=== PATIENT | female | born 1945 | race Caucasian/White ===

== ENCOUNTER 2019-01-26 08:53 | Emergency (ER) | payer MEDICARE, BC ==
[~2019-01-26] VITALS: Ht 157.5 cm; Wt 51.3 kg
[~2019-01-26 08:53] MED LIST: CIME400 PO; PRED20 PO
[2019-01-26] MEDS ORDERED: Pravachol20 MG PO (09:41)
[2019-01-26] MEDS ORDERED: OXYC5 PO (09:42)
[2019-01-26] MEDS ORDERED: HYDMOR2 (09:43)
== END 2019-01-26 10:33 | disposition home or self-care (01) ==
LOC: ER 08:53
DX: L76.32 Postprocedural hematoma of skin and subcutaneous tissue following other procedure (principal); Z98.1 Arthrodesis status; Z88.8 Allergy status to other drugs, medicaments and biological substances; Z79.899 Other long term (current) drug therapy; Z79.891 Long term (current) use of opiate analgesic; E78.5 Hyperlipidemia, unspecified; Z87.891 Personal history of nicotine dependence

== ENCOUNTER → 2021-01-08 | Outpatient (CLI) | payer MEDICARE, BC ==
[~2021-01-08] MED LIST changes: +HYDMOR2; +OXYC5 PO; +Pravachol20 MG PO
[2021-01-08 16:05] LABS: BASOPHILS ABSOLUTE AUTO 0.11 K/mm3 (0.00-0.23); BASOPHILS PERCENT AUTO 1 % (0-2); EOSINOPHILS ABSOLUTE AUTO 0.73 K/mm3 (0.00-0.68); EOSINOPHILS PERCENT AUTO 7 % (0-6); Hematocrit 40.7 % (33.0-51.0); IMMATURE GRAN ABSOLUTE AUTO 0.03 K/mm3 (0.00-0.10); IMMATURE GRAN PERCENT AUTO 0 % (0-1); LYMPHOCYTES PERCENT AUTO 21 % (21-46); MONOCYTES ABSOLUTE AUTO 0.88 K/mm3 (0.16-1.47); MONOCYTES PERCENT AUTO 9 % (4-13); Mean Corpuscular HGB 28.8 pg (26.0-34.0); Mean Corpuscular HGB Conc 34.4 g/dL (31.5-36.5); Mean Corpuscular Volume 84 fL (80-100); Mean Platelet Volume 8.7 fL (9.1-12.4); NEUTROPHILS PERCENT AUTO 62 % (41-73); Platelet Count 301 K/mm3 (150-400); RDW Coefficient Variation 12.8 % (11.7-14.2); RDW Standard Deviation 38.5 fL (35.1-46.3); Red Blood Cell Count 4.86 M/mm3 (3.80-5.20); White Blood Cell Count 10.05 K/mm3 (4.00-11.30)
[2021-01-08 16:14] LABS: Albumin, Blood 3.9 g/dL (3.4-5.0); Bilirubin, Total 0.2 mg/dL (0.1-1.0); Bun/Creatinine Ratio 17.4 (12.0-20.0); Calcium, Blood 9.5 mg/dL (8.5-10.1); Creatinine, Blood 0.92 mg/dL (0.40-1.00); Globulin, Blood 3.9 g/dL (2.2-4.0); Potassium, Blood 4.1 mmol/L (3.5-5.5); Total Protein, Blood 7.8 g/dL (6.4-8.2)
== END | disposition home or self-care (01) ==
LOC: LAB 16:00 → LAB SHORT 16:00
PROVIDERS: Physician Assistant Surgical
DX: R53.83 Other fatigue (principal)
CPT/HCPCS: 80053; 85025

== ENCOUNTER 2021-08-27 13:36 | Emergency (ER) | payer MEDICARE, BC ==
[~2021-08-27] VITALS: Ht 157.5 cm; Wt 54.4 kg
[2021-08-27] MEDS ORDERED: AZIT500 PO (17:13)
[2021-08-27] MEDS ORDERED: IPRATROPIUM BRO30 ML INH (17:13)
== END 2021-08-27 17:30 | disposition home or self-care (01) ==
LOC: ER 13:36
DX: R05.9 Cough, unspecified (principal); R06.2 Wheezing; F17.210 Nicotine dependence, cigarettes, uncomplicated; E78.5 Hyperlipidemia, unspecified; Z79.899 Other long term (current) drug therapy; Z88.8 Allergy status to other drugs, medicaments and biological substances
CPT/HCPCS: 71046

== ENCOUNTER 2024-04-02 09:42 | Day surgery (SDC) | payer MEDICARE, BC ==
[~2024-04-02] VITALS: Ht 157.5 cm; Wt 44.6 kg
[~2024-04-02 09:42] MED LIST changes: +AZIT500 PO; +Diazepam 2 MG Tab ONE; +IPRATROPIUM BRO30 ML INH; +Povidone-Iodine 450 DROP/30 ML Solution ONE; +Tetracaine HCl/Pf 0.5% Opth Soln 4 ml ONE
[2024-04-02] MEDS ORDERED: ATORVASTATIN CA20 MG PO (09:56)
[2024-04-02] MEDS ORDERED: PROLIA60 MG/1 ML SQ (09:57)
--- NOTE | 2024-04-02 10:21 | NUR ---
04/02/24 Alicja1 Sandra Ospina PT CAME IN AR-OP WITH TACHYCARDIA AND DIZZINESS. PT STATES DIZZINESS IS NORMAL FOR HER. ANESTHESIOLOGIST IS AWARE OF TACHYCARDIA AND ORDERED 12LEAD EKG. PER DOCTOR ORDER IT IS OK TO GIVE VALIUM 2MG PO FOR ANXIETY. PT BP 144/77. PT AWAKE, ALERT, ORIENTED. PT DENIES ANY PAIN.
[2024-04-02] MEDS ORDERED: Lidocaine HCl/Pf 1% 5 ML VIAL XX ONE (10:51)
[2024-04-02] MEDS ORDERED: Balanced Salt Epinephrine Irrigation Solution 500 mL IR ONE (10:51)
[2024-04-02] MEDS ORDERED: Moxifloxacin HCL 0.5 MG/0.1 ML 0.4MLSYR LEFTEYE ONE (10:51)
[2024-04-02 11:11] VITALS: BP 118/65
--- NOTE | 2024-04-02 11:37 | NUR ---
04/02/24 1137 ROSA WARREN, THEA, ASSISTED W/ PT CARE.
== END 2024-04-02 11:35 | disposition home or self-care (01) ==
LOC: ORSCSDS 09:42
PROVIDERS: Student in an Organized Health Care Education/Training Program
PROC: 08RK3JZ Replacement of Left Lens with Synthetic Substitute, Percutaneous Approach (ICD-10-PCS; principal; 2024-04-02 11:00)
DX: H25.813 Combined forms of age-related cataract, bilateral (principal); J44.9 Chronic obstructive pulmonary disease, unspecified; E78.5 Hyperlipidemia, unspecified; Z87.891 Personal history of nicotine dependence
CPT/HCPCS: 93005; 93010; A9270; J2003; V2632

== ENCOUNTER 2024-04-09 09:31 | Day surgery (SDC) | payer MEDICARE, BC ==
[~2024-04-09] VITALS: Ht 157.5 cm; Wt 40.8 kg
[~2024-04-09 09:31] MED LIST changes: +ATORVASTATIN CA20 MG PO; +Balanced Salt Epinephrine Irrigation Solution 500 mL IR SCH; -Diazepam 2 MG Tab ONE; +Lidocaine HCl/Pf 1% 5 ML VIAL XX SCH; +Moxifloxacin HCL 0.5 MG/0.1 ML 0.4MLSYR RIGHTEYE SCH; +PHENYLEPHRINE\\TROPICAMIDE\\TETRACAINE OPHTHALMIC DILATING SOLN RIGHTEYE PRN; +PROLIA60 MG/1 ML SQ; +Povidone-Iodine 450 DROP/30 ML Solution RIGHTEYE SCH
[2024-04-09] MEDS ORDERED: Diazepam 2 MG Tab ONE (09:51)
--- NOTE | 2024-04-09 10:20 | NUR ---
04/09/24 1020 Park Sandoval PATIENT REPORTS 0/10 FOR ANXIETY LEVEL PRIOR TO TAKING 4MG PO VAILUM AT 1008. WILL CONTINUE TO MONITOR.
[2024-04-09 11:13] VITALS: BP 122/65
--- NOTE | 2024-04-09 11:27 | NUR ---
04/09/24 1127 Agatha Clemente PT WHEELED OUT BY THEA SPIVEY, TO PRIVATE VEHICLE. PT HAS ALL BELONGINGS W/ HER. D/C INSTRUCTIONS GIVEN & PACKET W/ PT. NO VISIBLE SIGNS OF DISTRESS NOTED.
== END 2024-04-09 11:26 | disposition home or self-care (01) ==
LOC: ORSCSDS 09:31
PROVIDERS: Student in an Organized Health Care Education/Training Program
PROC: 08RJ3JZ Replacement of Right Lens with Synthetic Substitute, Percutaneous Approach (ICD-10-PCS; principal; 2024-04-09 11:00)
DX: H25.811 Combined forms of age-related cataract, right eye (principal); H35.89 Other specified retinal disorders; Z96.1 Presence of intraocular lens; E78.5 Hyperlipidemia, unspecified; J44.9 Chronic obstructive pulmonary disease, unspecified; Z87.891 Personal history of nicotine dependence; Z79.899 Other long term (current) drug therapy
CPT/HCPCS: A9270; V2632

== ENCOUNTER 2024-06-14 03:43 | Day surgery (SDC) | payer MEDICARE, BC ==
[~2024-06-14 03:43] MED LIST changes: -Balanced Salt Epinephrine Irrigation Solution 500 mL IR SCH; -Lidocaine HCl/Pf 1% 5 ML VIAL XX SCH; -Moxifloxacin HCL 0.5 MG/0.1 ML 0.4MLSYR RIGHTEYE SCH; -PHENYLEPHRINE\\TROPICAMIDE\\TETRACAINE OPHTHALMIC DILATING SOLN RIGHTEYE PRN; -Povidone-Iodine 450 DROP/30 ML Solution ONE; -Povidone-Iodine 450 DROP/30 ML Solution RIGHTEYE SCH; -Tetracaine HCl/Pf 0.5% Opth Soln 4 ml ONE
[2024-06-14] MEDS ORDERED: ZOLEDRONIC ACID/MANNITOL-WATER 100 ML IV SCH (06:00)
[2024-06-14 11:27] VITALS: BP 128/61
[2024-06-14 11:50] VITALS: BP 146/69
== END 2024-06-14 11:53 | disposition home or self-care (01) ==
LOC: ATC 03:43
DX: M81.0 Age-related osteoporosis without current pathological fracture (principal); Z88.8 Allergy status to other drugs, medicaments and biological substances; Z79.899 Other long term (current) drug therapy
CPT/HCPCS: 96365; J3489

== ENCOUNTER → 2025-01-09 | Outpatient (CLI) | payer MEDICARE, BC ==
[~2025-01-09] MED LIST changes: +ACET500 PO; +AZIT250 PO; +VISBIOME 112.51 EACH PO
[2025-01-09 15:42] LABS: BASOPHILS ABSOLUTE AUTO 0.11 K/mm3 (0.00-0.23); BASOPHILS PERCENT AUTO 1 % (0-2); EOSINOPHILS ABSOLUTE AUTO 0.14 K/mm3 (0.00-0.68); EOSINOPHILS PERCENT AUTO 1 % (0-6); Hematocrit 36.0 % (33.0-51.0); Hemoglobin 11.8 g/dL (11.5-16.0); IMMATURE GRAN ABSOLUTE AUTO 0.04 K/mm3 (0.00-0.10); IMMATURE GRAN PERCENT AUTO 0 % (0-1); LYMPHOCYTES ABSOLUTE AUTO 1.35 K/mm3 (0.84-5.20); LYMPHOCYTES PERCENT AUTO 10 % (21-46); MONOCYTES ABSOLUTE AUTO 1.01 K/mm3 (0.16-1.47); MONOCYTES PERCENT AUTO 8 % (4-13); Mean Corpuscular HGB Conc 32.8 g/dL (31.5-36.5); Mean Corpuscular Volume 87 fL (80-100); NEUTROPHILS ABSOLUTE AUTO 10.38 K/mm3 (1.96-9.15); NEUTROPHILS PERCENT AUTO 80 % (41-73); NRBC ABSOLUTE 0.00 K/mm3 (0.00-0.02); NRBC Auto 0.0 /100 WBC (0.0-0.2); Platelet Count 382 K/mm3 (150-400); RDW Coefficient Variation 14.1 % (11.7-14.2); RDW Standard Deviation 44.7 fL (35.1-46.3)
[2025-01-09 15:52] LABS: Alanine Aminotransfer (ALT/SGP 22.0 U/L (12-78); Albumin, Blood 4.0 g/dL (3.4-5.0); Albumin/Globulin Ratio 1.1 (0.8-1.8); Anion Gap 15.0 mmol/L (6-16); Aspartate Aminotrans (AST/SGOT 17.0 U/L (12-37); Bilirubin, Total 0.3 mg/dL (0.1-1.0); Blood Urea Nitrogen 25.0 mg/dL (8-24); CO2, Blood 27.0 mmol/L (21-32); Calcium, Blood 10.0 mg/dL (8.5-10.1); Chloride, Blood 105.0 mmol/L (98-108); Creatinine, Blood 0.74 mg/dL (0.40-1.00); Globulin, Blood 3.7 g/dL (2.2-4.0); Glucose, Blood 118.0 mg/dL (70-99); Magnesium, Blood 2.3 mg/dL (1.6-2.4); Potassium, Blood 3.9 mmol/L (3.5-5.5); Sodium, Blood 143.0 mmol/L (136-145); Total Protein, Blood 7.7 g/dL (6.4-8.2)
== END ==
LOC: LAB SHORT 15:37 → LAB 15:37
PROVIDERS: Family Medicine
DX: R29.6 Repeated falls (principal)
CPT/HCPCS: 80053; 83735; 85025

== ENCOUNTER → 2025-01-10 | Outpatient (CLI) | payer MEDICARE, BC ==
[2025-01-10 13:58] LABS: BASOPHILS ABSOLUTE AUTO 0.10 K/mm3 (0.00-0.23); BASOPHILS PERCENT AUTO 1 % (0-2); EOSINOPHILS ABSOLUTE AUTO 0.37 K/mm3 (0.00-0.68); EOSINOPHILS PERCENT AUTO 4 % (0-6); Hematocrit 34.4 % (33.0-51.0); Hemoglobin 11.3 g/dL (11.5-16.0); IMMATURE GRAN ABSOLUTE AUTO 0.02 K/mm3 (0.00-0.10); IMMATURE GRAN PERCENT AUTO 0 % (0-1); LYMPHOCYTES ABSOLUTE AUTO 1.29 K/mm3 (0.84-5.20); LYMPHOCYTES PERCENT AUTO 15 % (21-46); MONOCYTES ABSOLUTE AUTO 0.90 K/mm3 (0.16-1.47); MONOCYTES PERCENT AUTO 10 % (4-13); Mean Corpuscular HGB Conc 32.8 g/dL (31.5-36.5); Mean Corpuscular Volume 88 fL (80-100); NEUTROPHILS ABSOLUTE AUTO 6.19 K/mm3 (1.96-9.15); NEUTROPHILS PERCENT AUTO 70 % (41-73); NRBC ABSOLUTE 0.00 K/mm3 (0.00-0.02); NRBC Auto 0.0 /100 WBC (0.0-0.2); Platelet Count 331 K/mm3 (150-400); RDW Coefficient Variation 14.2 % (11.7-14.2); RDW Standard Deviation 45.8 fL (35.1-46.3)
[2025-01-10 14:08] LABS: Alanine Aminotransfer (ALT/SGP 20.0 U/L (12-78); Albumin, Blood 3.7 g/dL (3.4-5.0); Albumin/Globulin Ratio 1.0 (0.8-1.8); Anion Gap 12.0 mmol/L (6-16); Aspartate Aminotrans (AST/SGOT 17.0 U/L (12-37); Bilirubin, Total 0.3 mg/dL (0.1-1.0); Blood Urea Nitrogen 29.0 mg/dL (8-24); CO2, Blood 31.0 mmol/L (21-32); Calcium, Blood 9.7 mg/dL (8.5-10.1); Chloride, Blood 106.0 mmol/L (98-108); Creatinine, Blood 0.91 mg/dL (0.40-1.00); Globulin, Blood 3.6 g/dL (2.2-4.0); Glucose, Blood 89.0 mg/dL (70-99); Potassium, Blood 4.1 mmol/L (3.5-5.5); Sodium, Blood 145.0 mmol/L (136-145); Total Protein, Blood 7.3 g/dL (6.4-8.2)
== END ==
LOC: LAB 13:54 → LAB SHORT 13:54
PROVIDERS: Family Medicine
DX: R10.84 Generalized abdominal pain (principal)
CPT/HCPCS: 80053; 85025

== ENCOUNTER 2025-01-22 15:45 | Emergency (ER) | payer MEDICARE, BC ==
[~2025-01-22] VITALS: Ht 157.5 cm; Wt 39.9 kg
[2025-01-22 16:31] VITALS: BP 159/89
[2025-01-22 17:55] LABS: BASOPHILS ABSOLUTE AUTO 0.12 K/mm3 (0.00-0.23); BASOPHILS PERCENT AUTO 1 % (0-2); EOSINOPHILS ABSOLUTE AUTO 0.21 K/mm3 (0.00-0.68); EOSINOPHILS PERCENT AUTO 2 % (0-6); Hematocrit 37.6 % (33.0-51.0); Hemoglobin 12.1 g/dL (11.5-16.0); IMMATURE GRAN ABSOLUTE AUTO 0.04 K/mm3 (0.00-0.10); IMMATURE GRAN PERCENT AUTO 0 % (0-1); LYMPHOCYTES ABSOLUTE AUTO 1.56 K/mm3 (0.84-5.20); LYMPHOCYTES PERCENT AUTO 13 % (21-46); MONOCYTES ABSOLUTE AUTO 0.89 K/mm3 (0.16-1.47); MONOCYTES PERCENT AUTO 7 % (4-13); Mean Corpuscular HGB Conc 32.2 g/dL (31.5-36.5); Mean Corpuscular Volume 90 fL (80-100); NEUTROPHILS ABSOLUTE AUTO 9.14 K/mm3 (1.96-9.15); NEUTROPHILS PERCENT AUTO 77 % (41-73); NRBC ABSOLUTE 0.00 K/mm3 (0.00-0.02); NRBC Auto 0.0 /100 WBC (0.0-0.2); Platelet Count 358 K/mm3 (150-400); RDW Coefficient Variation 13.9 % (11.7-14.2); RDW Standard Deviation 46.4 fL (35.1-46.3)
[2025-01-22 18:55] LABS: Alanine Aminotransfer (ALT/SGP 24.0 U/L (12-78); Albumin, Blood 3.9 g/dL (3.4-5.0); Albumin/Globulin Ratio 1.1 (0.8-1.8); Anion Gap 9.0 mmol/L (3-11); Aspartate Aminotrans (AST/SGOT 20.0 U/L (12-37); Bilirubin, Total 0.3 mg/dL (0.1-1.0); Blood Urea Nitrogen 25.0 mg/dL (8-24); CO2, Blood 29.0 mmol/L (21-32); Calcium, Blood 9.9 mg/dL (8.5-10.1); Chloride, Blood 108.0 mmol/L (98-108); Creatinine, Blood 0.74 mg/dL (0.40-1.00); Globulin, Blood 3.6 g/dL (2.2-4.0); Glucose, Blood 118.0 mg/dL (70-99); Potassium, Blood 4.0 mmol/L (3.5-5.5); Sodium, Blood 142.0 mmol/L (136-145); Total Protein, Blood 7.5 g/dL (6.4-8.2)
== END 2025-01-22 17:50 | disposition left against medical advice (07) ==
LOC: ER 15:45
PROVIDERS: Student in an Organized Health Care Education/Training Program
DX: M25.512 Pain in left shoulder (principal); W19.XXXA Unspecified fall, initial encounter; Z53.21 Procedure and treatment not carried out due to patient leaving prior to being seen by health care provider
CPT/HCPCS: 71046; 72040; 73030; 73200; 80053; 84484; 85025; 93005; 93010; 99283-25